=== PATIENT | female | born 1980 | race Caucasian/White ===

== ENCOUNTER 2023-02-27 20:40 | Emergency (ER) | payer OTHER ==
[~2023-02-27] VITALS: Ht 160 cm; Wt 68.6 kg
[~2023-02-27 20:40] MED LIST: IBUP800T OR; MISOPROSTOL PO; MULTIVIT PO; PROV10TA OR
[2023-02-27 21:28] LABS: BASO # 0.1 10^3/uL (0.0-0.2); BASO % 0.5 % (0.0-1.0); HEMATOCRIT 42.5 % (36.0-47.0); HEMOGLOBIN 15.1 g/dl (12.0-15.5); LYMPH # 1.4 10^3/uL (1.5-5.0); LYMPH % 13.7 % (24.0-44.0); MEAN CORPUSCULAR HEMOGLOBIN 33.3 pg (27.0-33.0); MEAN CORPUSCULAR HGB CONC 35.5 g/dl (32.0-36.5); MEAN CORPUSCULAR VOLUME 93.8 fl (80.0-96.0); MONO # 0.8 10^3/uL (0.0-0.8); NEUTROPHILS % 77.5 % (36.0-66.0); PLATELET COUNT, AUTOMATED 396 10^3/uL (150-450); RED BLOOD COUNT 4.53 10^6/uL (4.00-5.40); WHITE BLOOD COUNT 10.3 10^3/uL (4.0-10.0)
[2023-02-27 21:54] LABS: LIPASE 23 U/L (12-53)
[2023-02-27 21:56] LABS: ALBUMIN 3.9 G/DL (3.2-5.2); ALKALINE PHOSPHATASE 83 U/L (46-116); ALT/SGPT 27 U/L (7.0-40); AST/SGOT 28 U/L (<34); BILIRUBIN,DIRECT 0.5 MG/DL (<0.4); BILIRUBIN,TOTAL 1.9 MG/DL (0.3-1.2); BLOOD UREA NITROGEN 12 MG/DL (9-23); CALCIUM LEVEL 9.9 MG/DL (8.5-10.1); CARBON DIOXIDE LEVEL 29 MMOL/L (20-31); CHLORIDE LEVEL 98 MMOL/L (98-107); CREATININE FOR GFR 0.74 MG/DL (0.55-1.30); GLOMERULAR FILTRATION RATE > 60.0 (>58); GLUCOSE, FASTING 88 MG/DL (60-100); POTASSIUM SERUM 3.4 MMOL/L (3.5-5.1); SODIUM LEVEL 136 MMOL/L (136-145); TOTAL PROTEIN 7.4 G/DL (5.7-8.2)
[2023-02-28 00:05] VITALS: BP 179/99; TEMP 98.3; O2SAT 99
[2023-02-28] MEDS ORDERED: NS 1,000 ML IV ONE (00:25)
[2023-02-28] MEDS ORDERED: PANTOPRAZOLE 40MG VIAL IV ONE (00:25)
[2023-02-28] MEDS ORDERED: ONDANSETRON 4MG 2ML VIAL IV ONE (00:25)
[2023-02-28 00:30] LABS: HCG, SERUM QUALITATIVE NEGATIVE (NEGATIVE)
[2023-02-28] MEDS ORDERED: PROT1TAB2 PO (01:35)
[2023-02-28] MEDS ORDERED: ONDA4TAB6 PO (01:35)
== END 2023-02-28 01:51 | disposition home or self-care (01) ==
LOC: M ED 20:40
DX: K29.70 Gastritis, unspecified, without bleeding (principal); T51.0X4A Toxic effect of ethanol, undetermined, initial encounter; Z88.2 Allergy status to sulfonamides; Z88.0 Allergy status to penicillin; Z91.048 Other nonmedicinal substance allergy status; Z79.810 Long term (current) use of selective estrogen receptor modulators (SERMs); Z79.83 Long term (current) use of bisphosphonates; Z79.899 Other long term (current) drug therapy
CPT/HCPCS: 80048; 80076; 83690; 84703; 85025; 96361; 96374; 99284; C9113; J2405

== ENCOUNTER 2023-05-19 09:00 | Emergency (ER) | payer OTHER ==
[~2023-05-19] VITALS: Ht 160 cm; Wt 67.3 kg
[2023-05-19 09:00] VITALS: BP 172/99; TEMP 97.5; O2SAT 96
[~2023-05-19 09:00] MED LIST changes: +ONDA4TAB6 PO; +PROT1TAB2 PO
[2023-05-19] MEDS ORDERED: BUPR300T92 (09:15)
[2023-05-19] MEDS ORDERED: CHLO125TA (09:15)
[2023-05-19] MEDS ORDERED: SEMA2PEN SQ (09:15)
== END 2023-05-19 10:25 | disposition left against medical advice (07) ==
LOC: M ED 09:00
DX: Z53.21 Procedure and treatment not carried out due to patient leaving prior to being seen by health care provider (principal)

== ENCOUNTER 2023-10-18 00:49 | Emergency (ER) | payer OTHER ==
[~2023-10-18] VITALS: Ht 160 cm; Wt 77.3 kg
[~2023-10-18 00:49] MED LIST changes: +BUPR-597; +CHLO125TA; +ONDA-282 PO; -ONDA4TAB6 PO; +SEMA2PEN SQ
[2023-10-18 00:50] VITALS: TEMP 97.5
[2023-10-18] MEDS ORDERED: TRAZ1TAB14 (01:04)
[2023-10-18 01:35] LABS: AMPHETAMINES LEVEL URINE NEGATIVE (NEGATIVE); BARBITURATES URINE NEGATIVE (NEGATIVE); BENZODIAZEPINES URINE NEGATIVE (NEGATIVE); CANNABINOIDS URINE NEGATIVE (NEGATIVE); COCAINE METABOLITE URINE NEGATIVE (NEGATIVE); METHADONE URINE NEGATIVE (NEGATIVE); OPIATES URINE NEGATIVE (NEGATIVE); PHENCYCLIDINE URINE NEGATIVE (NEGATIVE)
[2023-10-18] MEDS: NS 1,000 ML IV ONE (01:55)
[2023-10-18] MEDS ORDERED: LORazepam 2 MG TAB PO PRN (01:55)
[2023-10-18 02:30] LABS: BASO % 0.6 % (0.0-1.0); HEMOGLOBIN 14.1 g/dl (12.0-15.5); LYMPH # 1.5 10^3/uL (1.5-5.0); MEAN CORPUSCULAR HEMOGLOBIN 32.5 pg (27.0-33.0); MEAN CORPUSCULAR HGB CONC 35.3 g/dl (32.0-36.5); MEAN CORPUSCULAR VOLUME 92.2 fl (80.0-96.0); MONO # 0.6 10^3/uL (0.0-0.8); MONO % 8.4 % (2.0-8.0); NEUTROPHILS # 4.8 10^3/uL (1.5-8.5); NEUTROPHILS % 68.6 % (36.0-66.0); PLATELET COUNT, AUTOMATED 217 10^3/uL (150-450); RED BLOOD COUNT 4.34 10^6/uL (4.00-5.40)
[2023-10-18] MEDS: LORazepam 2 MG/ML 1ML VIAL IV STA (02:33)
[2023-10-18 02:53] LABS: ETHYL ALCOHOL (ETHANOL) 0.197 % (0.000-0.010)
[2023-10-18 02:54] LABS: SALICYLATE LEVEL < 3.0 MG/DL (<30)
[2023-10-18 02:55] LABS: ALBUMIN 3.9 G/DL (3.2-5.2); ALKALINE PHOSPHATASE 77 U/L (46-116); ALT/SGPT 54 U/L (7.0-40); AST/SGOT 49 U/L (<34); BILIRUBIN,DIRECT 0.3 MG/DL (<0.4); BLOOD UREA NITROGEN 8 MG/DL (9-23); CALCIUM LEVEL 7.9 MG/DL (8.5-10.1); CARBON DIOXIDE LEVEL 24 MMOL/L (20-31); CHLORIDE LEVEL 102 MMOL/L (98-107); CREATININE FOR GFR 0.61 MG/DL (0.55-1.30); GLOMERULAR FILTRATION RATE > 60.0 (>58); GLUCOSE, FASTING 93 MG/DL (60-100); POTASSIUM SERUM 3.9 MMOL/L (3.5-5.1); SODIUM LEVEL 134 MMOL/L (136-145); TOTAL PROTEIN 6.9 G/DL (5.7-8.2)
[2023-10-18 02:56] LABS: THYROID STIMULATING HORMONE 1.977 uIU/ML (0.55-4.78)
[2023-10-18 03:04] LABS: CPK CREATINE PHOSPHOKINASE 168 U/L (34-145)
[2023-10-18 03:13] LABS: HCG, SERUM QUALITATIVE NEGATIVE (NEGATIVE)
[2023-10-18] MEDS ORDERED: OXAZ10CA3 PO ×2 (04:25→09:34)
[2023-10-18 06:00] VITALS: BP 130/73
[2023-10-18 06:15] VITALS: O2SAT 98
[2023-10-18] MEDS ORDERED: THIAMINE 100 MG TAB PO SCH (09:00)
[2023-10-18] MEDS ORDERED: MULTIVITAMINS/MINERALS THERAP 1 TAB PO SCH (09:00)
[2023-10-18] MEDS ORDERED: FOLIC ACID 1MG TAB PO SCH (09:00)
== END 2023-10-18 06:31 | disposition home or self-care (01) ==
LOC: M ED 00:49
DX: F10.129 Alcohol abuse with intoxication, unspecified (principal); I10 Essential (primary) hypertension; J30.2 Other seasonal allergic rhinitis; Z79.84 Long term (current) use of oral hypoglycemic drugs; Z79.899 Other long term (current) drug therapy; Z88.0 Allergy status to penicillin; Z88.2 Allergy status to sulfonamides; Z88.8 Allergy status to other drugs, medicaments and biological substances
CPT/HCPCS: 80048; 80076; 80143; 80307; 82077; 82550; 84443; 84703; 85025; 93005; 93041; 94760; 96361; 96374; 99285; J2060

== ENCOUNTER 2024-04-15 17:19 | Emergency (ER) | payer OTHER ==
[~2024-04-15] VITALS: Ht 160 cm; Wt 65.9 kg
[~2024-04-15 17:19] MED LIST changes: -CHLO125TA; +CHLO125TA PO; +OXAZ10CA3 PO; +TRAZ1TAB14 PO
[2024-04-15 17:31] VITALS: BP 152/89; TEMP 98.2
[2024-04-15 17:34] VITALS: O2SAT 95
[2024-04-15 18:13] LABS: HEMATOCRIT 42.1 % (36.0-47.0); HEMOGLOBIN 14.7 g/dl (12.0-15.5); MEAN CORPUSCULAR HEMOGLOBIN 32.4 pg (27.0-33.0); MEAN CORPUSCULAR HGB CONC 34.9 g/dl (32.0-36.5); MEAN CORPUSCULAR VOLUME 92.7 fl (80.0-96.0); PLATELET COUNT, AUTOMATED 116 10^3/uL (150-450); RED BLOOD COUNT 4.54 10^6/uL (4.00-5.40); WHITE BLOOD COUNT 5.3 10^3/uL (4.0-10.0)
[2024-04-15] MEDS ORDERED: BUPR150T12 PO (18:38)
[2024-04-15] MEDS ORDERED: AMPH1CAP15 PO (18:38)
[2024-04-15] MEDS ORDERED: OMEP-173 PO (18:38)
[2024-04-15] MEDS ORDERED: HOME MED LIST COMPLETE! XX SCH (18:40)
[2024-04-15 18:42] LABS: ALBUMIN 4.1 G/DL (3.2-5.2); ALKALINE PHOSPHATASE 75 U/L (35-104); ALT/SGPT 176 U/L (7.0-40); AST/SGOT 165 U/L (<34); BILIRUBIN,DIRECT 0.2 MG/DL (<0.4); BILIRUBIN,TOTAL 0.7 MG/DL (0.3-1.2); BLOOD UREA NITROGEN 7 MG/DL (9-23); CALCIUM LEVEL 7.7 MG/DL (8.5-10.1); CARBON DIOXIDE LEVEL 25 MMOL/L (20-31); CHLORIDE LEVEL 97 MMOL/L (98-107); CREATININE FOR GFR 0.55 MG/DL (0.55-1.30); GLOMERULAR FILTRATION RATE > 60.0 (>58); GLUCOSE, FASTING 93 MG/DL (60-100); HCG, SERUM QUALITATIVE NEGATIVE (NEGATIVE); POTASSIUM SERUM 3.7 MMOL/L (3.5-5.1); SALICYLATE LEVEL < 3.0 MG/DL (<30); SODIUM LEVEL 138 MMOL/L (136-145); TOTAL PROTEIN 7.5 G/DL (5.7-8.2)
[2024-04-15 18:44] LABS: THYROID STIMULATING HORMONE 1.195 uIU/ML (0.55-4.78)
[2024-04-15 19:13] LABS: ETHYL ALCOHOL (ETHANOL) 0.443 % (0.000-0.010)
== END 2024-04-15 22:50 | disposition left against medical advice (07) ==
LOC: EDBD 17:19 → M ED 17:19
DX: F10.129 Alcohol abuse with intoxication, unspecified (principal); Z53.9 Procedure and treatment not carried out, unspecified reason; I10 Essential (primary) hypertension; J30.2 Other seasonal allergic rhinitis; Z79.899 Other long term (current) drug therapy; Z88.0 Allergy status to penicillin; Z88.2 Allergy status to sulfonamides; Z88.8 Allergy status to other drugs, medicaments and biological substances

== ENCOUNTER 2024-04-17 07:13 | Emergency (ER) | payer OTHER ==
[~2024-04-17 07:13] MED LIST changes: +AMPH1CAP15 PO; +BUPR150T12 PO; +OMEP-173 PO
[2024-04-17 07:37] VITALS: TEMP 97.4
[2024-04-17 07:51] LABS: BASO % 0.4 % (0.0-1.0); EOS % 0.4 % (0.0-3.0); HEMATOCRIT 40.3 % (36.0-47.0); HEMOGLOBIN 14.2 g/dl (12.0-15.5); LYMPH # 1.4 10^3/uL (1.5-5.0); LYMPH % 29.3 % (24.0-44.0); MEAN CORPUSCULAR HEMOGLOBIN 32.6 pg (27.0-33.0); MEAN CORPUSCULAR HGB CONC 35.2 g/dl (32.0-36.5); MEAN CORPUSCULAR VOLUME 92.4 fl (80.0-96.0); MONO # 0.6 10^3/uL (0.0-0.8); MONO % 12.8 % (2.0-8.0); NEUTROPHILS # 2.7 10^3/uL (1.5-8.5); NEUTROPHILS % 56.7 % (36.0-66.0); PLATELET COUNT, AUTOMATED 102 10^3/uL (150-450); RED BLOOD COUNT 4.36 10^6/uL (4.00-5.40); WHITE BLOOD COUNT 4.7 10^3/uL (4.0-10.0)
[2024-04-17 08:19] LABS: CK-MB VALUE MASS < 1.0 NG/ML (<3.6)
[2024-04-17 08:21] LABS: BLOOD UREA NITROGEN 7 MG/DL (9-23); CALCIUM LEVEL 8.1 MG/DL (8.5-10.1); CARBON DIOXIDE LEVEL 26 MMOL/L (20-31); CHLORIDE LEVEL 105 MMOL/L (98-107); CPK CREATINE PHOSPHOKINASE 140 U/L (34-145); CREATININE FOR GFR 0.59 MG/DL (0.55-1.30); GLOMERULAR FILTRATION RATE > 60.0 (>58); GLUCOSE, FASTING 99 MG/DL (60-100); MB/CK RELATIVE INDEX 0.71 (< OR =4); SODIUM LEVEL 142 MMOL/L (136-145)
[2024-04-17 08:38] LABS: LIPASE 56 U/L (12-53)
[2024-04-17] MEDS: MORPHINE 4 MG/ML 1ML VIAL IV ONE (08:54)
[2024-04-17] MEDS: PANTOPRAZOLE 40MG VIAL IV ONE (08:54)
[2024-04-17] MEDS: NS (Normal Saline) 0.9% 1,000 ML IV ONE (08:54)
[2024-04-17] MEDS: ONDANSETRON 4MG 2ML VIAL IV ONE (09:09)
[2024-04-17 09:39] LABS: CK-MB VALUE MASS < 1.0 NG/ML (<3.6)
[2024-04-17 09:40] LABS: CPK CREATINE PHOSPHOKINASE 135 U/L (34-145); MB/CK RELATIVE INDEX 0.74 (< OR =4)
[2024-04-17] MEDS ORDERED: LORazepam 2 MG TAB PO PRN (09:55)
[2024-04-17] MEDS: THIAMINE 100 MG TAB PO SCH (10:05)
[2024-04-17] MEDS ORDERED: HOME MED LIST COMPLETE! XX SCH (10:05)
[2024-04-17 10:32] VITALS: BP 145/84
[2024-04-17] MEDS: LORazepam 1 MG TAB PO ONE (10:32)
[2024-04-17 11:28] VITALS: O2SAT 92
[2024-04-17] MEDS ORDERED: CARA1TAB6 PO (11:36)
[2024-04-17] MEDS ORDERED: OXAZ15CA4 PO (11:36)
[2024-04-17] MEDS ORDERED: ASPI81TA26 PO (11:36)
[2024-04-18] MEDS ORDERED: MULTIVITAMINS/MINERALS THERAP 1 TAB PO SCH (09:00)
[2024-04-18] MEDS ORDERED: FOLIC ACID 1MG TAB PO SCH (09:00)
[2024-04-18] MEDS ORDERED: ASPI81TA26 PO (10:59)
[2024-04-18] MEDS ORDERED: OXAZ15CA4 PO (10:59)
[2024-04-18] MEDS ORDERED: SUCR1TA PO (10:59)
== END 2024-04-17 11:47 | disposition home or self-care (01) ==
LOC: M ED 07:13
DX: K29.20 Alcoholic gastritis without bleeding (principal); R79.89 Other specified abnormal findings of blood chemistry; F10.129 Alcohol abuse with intoxication, unspecified; R07.89 Other chest pain; I10 Essential (primary) hypertension; K21.9 Gastro-esophageal reflux disease without esophagitis; F90.9 Attention-deficit hyperactivity disorder, unspecified type; J30.2 Other seasonal allergic rhinitis; Z79.82 Long term (current) use of aspirin; Z79.899 Other long term (current) drug therapy; Z88.0 Allergy status to penicillin; Z88.2 Allergy status to sulfonamides; Z88.8 Allergy status to other drugs, medicaments and biological substances

== ENCOUNTER 2024-04-17 21:36 | Observation (INO) | payer OTHER ==
[~2024-04-17] VITALS: Ht 160 cm; Wt 69.5 kg
[~2024-04-17 21:36] MED LIST changes: +ASPI81TA26 PO; +CARA1TAB6 PO; +OXAZ15CA4 PO
[2024-04-17 23:38] LABS: ETHYL ALCOHOL (ETHANOL) 0.044 % (0.000-0.010)
[2024-04-17 23:49] LABS: BLOOD UREA NITROGEN < 5 MG/DL (9-23); CALCIUM LEVEL 8.2 MG/DL (8.5-10.1); CARBON DIOXIDE LEVEL 29 MMOL/L (20-31); CHLORIDE LEVEL 102 MMOL/L (98-107); CREATININE FOR GFR 0.55 MG/DL (0.55-1.30); GLOMERULAR FILTRATION RATE > 60.0 (>58); GLUCOSE, FASTING 85 MG/DL (60-100); POTASSIUM SERUM 3.8 MMOL/L (3.5-5.1); SODIUM LEVEL 140 MMOL/L (136-145)
[2024-04-18 00:17] LABS: HEMATOCRIT 41.5 % (36.0-47.0); HEMOGLOBIN 14.3 g/dl (12.0-15.5); MEAN CORPUSCULAR HEMOGLOBIN 32.4 pg (27.0-33.0); MEAN CORPUSCULAR HGB CONC 34.5 g/dl (32.0-36.5); MEAN CORPUSCULAR VOLUME 94.1 fl (80.0-96.0); NEUTROPHILS % 74.5 % (36.0-66.0); PLATELET COUNT, AUTOMATED 91 10^3/uL (150-450); RED BLOOD COUNT 4.41 10^6/uL (4.00-5.40); WHITE BLOOD COUNT 4.7 10^3/uL (4.0-10.0)
[2024-04-18 00:18] LABS: BASO % 0.2 % (0.0-1.0); EOS % 0.2 % (0.0-3.0); LYMPH # 0.8 10^3/uL (1.5-5.0); MONO # 0.4 10^3/uL (0.0-0.8); MONO % 8.7 % (2.0-8.0); NEUTROPHILS # 3.5 10^3/uL (1.5-8.5)
[2024-04-18] MEDS: OXAZEPAM 15MG CAP PO ONE ×2 (04:22→06:03)
[2024-04-18] MEDS: NS (Normal Saline) 0.9% 1,000 ML IV ONE (04:22)
[2024-04-18] MEDS: ONDANSETRON 4MG 2ML VIAL IV ONE (04:22)
[2024-04-18] MEDS: ACETAMINOPHEN 325 MG TAB PO ONE (06:02)
[2024-04-18] MEDS: LORazepam 2 MG TAB PO PRN (08:08)
[2024-04-18] MEDS: FOLIC ACID 1MG TAB PO SCH (08:08)
[2024-04-18] MEDS: THIAMINE 100 MG TAB PO SCH (08:08)
[2024-04-18] MEDS: MULTIVITAMINS/MINERALS THERAP 1 TAB PO SCH (08:08)
[2024-04-18 08:59] LABS: CK-MB VALUE MASS < 1.0 NG/ML (<3.6)
[2024-04-18 09:09] LABS: CPK CREATINE PHOSPHOKINASE 94 U/L (34-145); MB/CK RELATIVE INDEX 1.06 (< OR =4)
[2024-04-18] MEDS ORDERED: ASPI81TA26 PO (10:59)
[2024-04-18] MEDS ORDERED: OXAZ15CA4 PO (10:59)
[2024-04-18] MEDS ORDERED: SUCR1TA PO (10:59)
[2024-04-18] MEDS ORDERED: HOME MED LIST COMPLETE! XX SCH (11:00)
[2024-04-18] MEDS ORDERED: LORazepam 2 MG TAB PO PRN (11:00)
[2024-04-18] MEDS ORDERED: ISOVUE-370 76% 100ML VIAL As Ordered ONE (11:09)
[2024-04-18 12:07] LABS: BASO % 0.5 % (0.0-1.0); HEMATOCRIT 39.1 % (36.0-47.0); HEMOGLOBIN 13.2 g/dl (12.0-15.5); LYMPH # 1.3 10^3/uL (1.5-5.0); MEAN CORPUSCULAR HEMOGLOBIN 32.7 pg (27.0-33.0); MEAN CORPUSCULAR HGB CONC 33.8 g/dl (32.0-36.5); MEAN CORPUSCULAR VOLUME 96.8 fl (80.0-96.0); MONO # 0.4 10^3/uL (0.0-0.8); MONO % 10.1 % (2.0-8.0); NEUTROPHILS # 2.3 10^3/uL (1.5-8.5); NEUTROPHILS % 57.2 % (36.0-66.0); RED BLOOD COUNT 4.04 10^6/uL (4.00-5.40); WHITE BLOOD COUNT 4.1 10^3/uL (4.0-10.0)
[2024-04-18 12:09] LABS: PLATELET COUNT, AUTOMATED 73 10^3/uL (150-450)
[2024-04-18 12:34] LABS: LIPASE 31 U/L (12-53)
[2024-04-18 12:49] LABS: PROCALCITONIN 0.13 ng/ml
[2024-04-18] MEDS ORDERED: ONDANSETRON 4MG 2ML VIAL IV PRN (12:55)
[2024-04-18] MEDS ORDERED: traZODone 50 MG TAB PO PRN (12:55)
[2024-04-18 12:57] LABS: ALBUMIN 3.3 G/DL (3.2-5.2); ALKALINE PHOSPHATASE 68 U/L (35-104); ALT/SGPT 150 U/L (7.0-40); AST/SGOT 111 U/L (<34); BILIRUBIN,TOTAL 1.4 MG/DL (0.3-1.2); BLOOD UREA NITROGEN 5 MG/DL (9-23); CALCIUM LEVEL 8.2 MG/DL (8.5-10.1); CARBON DIOXIDE LEVEL 27 MMOL/L (20-31); CHLORIDE LEVEL 104 MMOL/L (98-107); CREATININE FOR GFR 0.57 MG/DL (0.55-1.30); GLOMERULAR FILTRATION RATE > 60.0 (>58); GLUCOSE, FASTING 72 MG/DL (60-100); MAGNESIUM LEVEL 1.7 MG/DL (1.8-2.4); POTASSIUM SERUM 3.5 MMOL/L (3.5-5.1); SODIUM LEVEL 138 MMOL/L (136-145); TOTAL PROTEIN 6.3 G/DL (5.7-8.2)
[2024-04-18] MEDS: chlordiazePOXIDE 25 MG CAP PO SCH (14:22)
[2024-04-18] MEDS: MAG SULF 1GM/100ML (MAG RUN) 1 GM in IV 1 EA IV ONE (14:22)
[2024-04-18] MEDS: CHLORTHALIDONE 25 MG TAB PO SCH (14:22)
[2024-04-18] MEDS: buPROPion **XL** TABLET 150MG (WELLBUTRIN XL) PO SCH (14:22)
[2024-04-18 17:01] VITALS: BP 156/90
[2024-04-18] MEDS: KCL 20MEQ in NS 1000ML 1,000 ML IV SCH (17:19)
[2024-04-18] MEDS ORDERED: SUCRALFATE 1 GM TAB PO SCH (17:30)
[2024-04-18 17:46] VITALS: TEMP 98; O2SAT 95
[2024-04-18] MEDS ORDERED: ENOXAPARIN 40MG/0.4ML SYRINGE (J1650 PER 10MG) SC SCH (21:00)
[2024-04-18] MEDS ORDERED: OMEPRAZOLE 20MG CAP PO SCH (21:00)
[2024-04-18] MEDS ORDERED: THIAMINE 100 MG TAB PO SCH (21:00)
[2024-04-19] MEDS ORDERED: MULTIVITAMINS/MINERALS THERAP 1 TAB PO SCH (09:00)
[2024-04-19] MEDS ORDERED: FOLIC ACID 1MG TAB PO SCH (09:00)
== END 2024-04-18 18:20 | disposition left against medical advice (07) ==
LOC: M ED 21:36 → M ED INP 21:37
PROVIDERS: ADMIT Internal Medicine; ATTEND Internal Medicine
DX: F10.239 Alcohol dependence with withdrawal, unspecified (principal); I10 Essential (primary) hypertension; K21.9 Gastro-esophageal reflux disease without esophagitis; F39 Unspecified mood [affective] disorder; R10.13 Epigastric pain; R11.2 Nausea with vomiting, unspecified; E83.42 Hypomagnesemia; R74.01 Elevation of levels of liver transaminase levels; G47.00 Insomnia, unspecified; Z82.49 Family history of ischemic heart disease and other diseases of the circulatory system; Z79.899 Other long term (current) drug therapy; Z79.82 Long term (current) use of aspirin; J30.2 Other seasonal allergic rhinitis; Z88.0 Allergy status to penicillin; Z88.2 Allergy status to sulfonamides; Z88.8 Allergy status to other drugs, medicaments and biological substances; K29.20 Alcoholic gastritis without bleeding
CPT/HCPCS: 36415; 71275; 74177; 80048; 80053; 82077; 82550; 82553; 83605; 83690; 83735; 84145; 84484; 85025; 85049; 85055; 93005; 93041; 94760; 96361; 96365; 96367; 96374; 96375; 99285; J2405; J2470; J3475; Q9967

== ENCOUNTER 2024-07-08 21:43 | Emergency (ER) | payer OTHER ==
[~2024-07-08] VITALS: Ht 160 cm; Wt 70.9 kg
[~2024-07-08 21:43] MED LIST changes: -BUPR-597; +BUPR-766; +SUCR1TA PO
[2024-07-08] MEDS: ONDANSETRON 4MG ORAL DISINTEGRATING TAB PO ONE (23:41)
[2024-07-08] MEDS: OXAZEPAM 15MG CAP PO ONE (23:42)
[2024-07-09 02:19] LABS: Trichomonas vaginalis (AMP) NOT DETECTED (NEGATIVE)
[2024-07-09 02:44] LABS: GC DNA AMPLIFICATION NEGATIVE (NEGATIVE)
[2024-07-09 03:12] VITALS: BP 159/100; TEMP 98.1; O2SAT 97
[2024-07-10] MEDS ORDERED: ROZE8TAB16 PO (14:09)
[2024-07-10] MEDS ORDERED: PRAZ1CAP PO (14:09)
[2024-07-10] MEDS ORDERED: AMPH1CAP14 PO (14:09)
[2024-07-10] MEDS ORDERED: PANT40TA29 PO (14:09)
== END 2024-07-09 04:40 | disposition home or self-care (01) ==
LOC: M ED 21:43
DX: F10.129 Alcohol abuse with intoxication, unspecified (principal); I10 Essential (primary) hypertension; K21.9 Gastro-esophageal reflux disease without esophagitis; F90.9 Attention-deficit hyperactivity disorder, unspecified type; F32.A Depression, unspecified; J30.2 Other seasonal allergic rhinitis; Z79.899 Other long term (current) drug therapy; Z88.0 Allergy status to penicillin; Z88.2 Allergy status to sulfonamides; Z88.8 Allergy status to other drugs, medicaments and biological substances

== ENCOUNTER 2024-07-10 03:11 | Emergency (ER) | payer OTHER ==
[~2024-07-10] VITALS: Ht 160 cm; Wt 66.4 kg
[2024-07-10 04:16] LABS: BASO # 0.1 10^3/uL (0.0-0.2); BASO % 0.8 % (0.0-1.0); EOS % 0.2 % (0.0-3.0); HEMATOCRIT 43.2 % (36.0-47.0); HEMOGLOBIN 14.8 g/dl (12.0-15.5); LYMPH # 2.3 10^3/uL (1.5-5.0); LYMPH % 34.7 % (24.0-44.0); MEAN CORPUSCULAR HEMOGLOBIN 32.5 pg (27.0-33.0); MEAN CORPUSCULAR HGB CONC 34.3 g/dl (32.0-36.5); MEAN CORPUSCULAR VOLUME 94.9 fl (80.0-96.0); MONO # 0.5 10^3/uL (0.0-0.8); MONO % 8.1 % (2.0-8.0); NEUTROPHILS # 3.7 10^3/uL (1.5-8.5); NEUTROPHILS % 55.9 % (36.0-66.0); PLATELET COUNT, AUTOMATED 260 10^3/uL (150-450); RED BLOOD COUNT 4.55 10^6/uL (4.00-5.40); WHITE BLOOD COUNT 6.5 10^3/uL (4.0-10.0)
[2024-07-10 04:47] LABS: AMPHETAMINES LEVEL URINE NEGATIVE (NEGATIVE); BARBITURATES URINE NEGATIVE (NEGATIVE); BENZODIAZEPINES URINE NEGATIVE (NEGATIVE); CANNABINOIDS URINE NEGATIVE (NEGATIVE); COCAINE METABOLITE URINE NEGATIVE (NEGATIVE); METHADONE URINE NEGATIVE (NEGATIVE); OPIATES URINE NEGATIVE (NEGATIVE); PHENCYCLIDINE URINE NEGATIVE (NEGATIVE)
[2024-07-10 04:50] LABS: SALICYLATE LEVEL < 3.0 MG/DL (<30)
[2024-07-10 04:51] LABS: ALBUMIN 4.1 G/DL (3.2-5.2); ALKALINE PHOSPHATASE 83 U/L (35-104); ALT/SGPT 102 U/L (7.0-40); AST/SGOT 89 U/L (<34); BILIRUBIN,DIRECT 0.1 MG/DL (<0.4); BILIRUBIN,TOTAL 0.5 MG/DL (0.3-1.2); BLOOD UREA NITROGEN 10 MG/DL (9-23); CALCIUM LEVEL 8.4 MG/DL (8.5-10.1); CARBON DIOXIDE LEVEL 31 MMOL/L (20-31); CHLORIDE LEVEL 105 MMOL/L (98-107); CREATININE FOR GFR 0.76 MG/DL (0.55-1.30); GLOMERULAR FILTRATION RATE > 90.0 (>58); GLUCOSE, FASTING 93 MG/DL (60-100); POTASSIUM SERUM 4.4 MMOL/L (3.5-5.1); SODIUM LEVEL 145 MMOL/L (136-145); TOTAL PROTEIN 7.5 G/DL (5.7-8.2)
[2024-07-10 04:53] LABS: THYROID STIMULATING HORMONE 0.996 uIU/ML (0.55-4.78)
[2024-07-10 05:08] LABS: HCG, SERUM QUALITATIVE NEGATIVE (NEGATIVE)
[2024-07-10 05:11] LABS: ETHYL ALCOHOL (ETHANOL) 0.391 % (0.000-0.010)
[2024-07-10] MEDS: MULTIVITAMINS/MINERALS THERAP 1 TAB PO SCH (08:40)
[2024-07-10] MEDS: FOLIC ACID 1MG TAB PO SCH (08:40)
[2024-07-10] MEDS: LORazepam 2 MG TAB PO PRN (08:40)
[2024-07-10] MEDS: THIAMINE 100 MG TAB PO SCH (08:40)
[2024-07-10] MEDS: ACETAMINOPHEN 325 MG TAB PO ONE (09:47)
[2024-07-10] MEDS ORDERED: AMPH1CAP14 PO (14:09)
[2024-07-10] MEDS ORDERED: PRAZ1CAP PO (14:09)
[2024-07-10] MEDS ORDERED: PANT40TA29 PO (14:09)
[2024-07-10] MEDS ORDERED: ROZE8TAB16 PO (14:09)
[2024-07-10] MEDS ORDERED: HOME MED LIST COMPLETE! XX SCH (14:10)
[2024-07-10 15:24] VITALS: BP 131/65; TEMP 98.1; O2SAT 98
== END 2024-07-10 15:29 | disposition home or self-care (01) ==
LOC: M ED 03:11
DX: F10.129 Alcohol abuse with intoxication, unspecified (principal); I10 Essential (primary) hypertension; F90.9 Attention-deficit hyperactivity disorder, unspecified type; K21.9 Gastro-esophageal reflux disease without esophagitis; J30.2 Other seasonal allergic rhinitis; Z79.899 Other long term (current) drug therapy; Z88.0 Allergy status to penicillin; Z88.2 Allergy status to sulfonamides; Z88.8 Allergy status to other drugs, medicaments and biological substances

== ENCOUNTER → 2025-01-29 | Outpatient (REF) | payer OTHER ==
[~2025-01-29] MED LIST changes: +AMPH1CAP14 PO; +PANT40TA29 PO; +PRAZ1CAP PO; +ROZE8TAB16 PO
[2025-01-29 15:38] LABS: BASO # 0.1 10^3/uL (0.0-0.2); BASO % 0.8 % (0.0-1.0); EOS # 0.0 10^3/uL (0.0-0.5); EOS % 0.0 % (0.0-3.0); LYMPH # 2.5 10^3/uL (1.5-5.0); LYMPH % 28.6 % (24.0-44.0); MONO # 0.6 10^3/uL (0.0-0.8); MONO % 6.6 % (2.0-8.0); NEUTROPHILS # 5.5 10^3/uL (1.5-8.5); NEUTROPHILS % 63.5 % (36.0-66.0); PLATELET COUNT, AUTOMATED 333 10^3/uL (150-450)
[2025-01-29 16:04] LABS: ALT/SGPT 21 U/L (7.0-40); AST/SGOT 21 U/L (<34); C REACTIVE PROTEIN QUANTITATIV < 0.50 MG/DL (<1.0); CALCIUM LEVEL 9.1 MG/DL (8.5-10.1); CARBON DIOXIDE LEVEL 34 MMOL/L (20-31); CHLORIDE LEVEL 98 MMOL/L (98-107); CPK CREATINE PHOSPHOKINASE 176 U/L (34-145); CREATININE FOR GFR 0.87 MG/DL (0.55-1.30); GLOMERULAR FILTRATION RATE 83.2 (>58); IRON (FE) 104 UG/DL (50-170); MAGNESIUM LEVEL 1.8 MG/DL (1.8-2.4); PHOSPHORUS LEVEL 3.5 MG/DL (2.5-4.9); POTASSIUM SERUM 3.9 MMOL/L (3.5-5.1); SODIUM LEVEL 139 MMOL/L (136-145)
[2025-01-29 16:05] LABS: HEPATITIS B SURFACE ANTIBODY POSITIVE (POSITIVE); PERCENT SATURATION 34.6 % (13.2-45.0)
[2025-01-29 16:06] LABS: TOTAL 25(OH) VITAMIN D 41.8 NG/ML (20.0-100.0); VITAMIN B12 LEVEL 688 PG/ML (211-911)
[2025-01-29 16:38] LABS: HEPATITIS C VIRUS ABY INDEX < 0.02 INDEX (<0.8)
[2025-01-30 13:02] LABS: HEPATITIS B CORE ANTIBODY IGG NON-REACTIVE (NON-REACTIVE)
== END ==
LOC: M SFHCRHEU 11:16
PROVIDERS: ATTEND Internal Medicine
DX: R76.89 Other specified abnormal immunological findings in serum (principal); R53.83 Other fatigue; M79.18 Myalgia, other site; M25.50 Pain in unspecified joint

== ENCOUNTER → 2025-02-06 | Outpatient (CLI) | payer OTHER ==
[~2025-02-06] MED LIST changes: +ISOVUE-300 61% 100 ML VIAL As Ordered ONE; +LIDOCAINE 1% MDV 20 ML VIAL As Ordered ONE; +TRIAMCINOLONE ACETONIDE SUSP 40MG/ML 1ML VIAL As Ordered ONE
== END ==
LOC: M RAD 14:38
PROVIDERS: ATTEND Physician Assistant Surgical
DX: S73.121A Ischiocapsular ligament sprain of right hip, initial encounter (principal); X58.XXXA Exposure to other specified factors, initial encounter; Y92.9 Unspecified place or not applicable
CPT/HCPCS: 20610; 77002; J3301; Q9967

== ENCOUNTER → 2025-03-03 | Outpatient (CLI) | payer OTHER ==
[~2025-03-03] MED LIST changes: -ISOVUE-300 61% 100 ML VIAL As Ordered ONE; -LIDOCAINE 1% MDV 20 ML VIAL As Ordered ONE; -TRIAMCINOLONE ACETONIDE SUSP 40MG/ML 1ML VIAL As Ordered ONE
== END ==
LOC: M WHC 15:04
PROVIDERS: ATTEND Physician Assistant
DX: Z12.31 Encounter for screening mammogram for malignant neoplasm of breast (principal)